=== PATIENT | female | born 1950 | race Caucasian/White ===

== ENCOUNTER 2020-10-26 11:11 | Inpatient (IN) ==
[2020-10-26] MEDS ORDERED: 0.9 % Sodium Chloride 500 ML IVC ONE (11:51)
[2020-10-26 11:54] LABS: Basophils % 0.3 %; Hematocrit 23.7 % (35.3-44.9); Hemoglobin 7.8 g/dL (11.5-15.4); Immature Granulocytes % 6.7 % (0-4); Lymphocytes # 0.3 K/mcL (0.6-4.6); Lymphocytes % 8.6 %; Mean Corpuscular HGB Conc 32.9 g/dL (31.6-35.5); Mean Corpuscular Hemoglobin 31.1 pg (28.0-33.3); Mean Corpuscular Volume 94.4 fL (83.0-100.0); Mean Platelet Volume 8.7 fL (9.4-12.4); Monocytes # 0.2 K/mcL (0.0-1.3); Monocytes % 4.6 %; Nucleated Red Blood Cells 1.3 /100 WBC (0); Platelet Count 125 K/mcL (140-400); Red Blood Count 2.51 M/mcL (3.82-4.97); Red Cell Distribution Width 19.2 % (11.5-14.5); Segmented Neutrophils % 79.8 %; White Blood Count 3.7 K/mcL (4.3-11.1)
[2020-10-26 12:04] LABS: Bilirubin,Urine Negative (Negative); Blood,Urine Negative (Negative); Clarity,Urine Clear (Clear); Color,Urine Yellow (Yellow); Glucose,Urine (UA) Normal (Normal); Ketones,Urine Trace mg/dL (Negative); Leukocyte Esterase,Urine Trace (Negative); Nitrite,Urine Negative (Negative); Protein,Urine 30 mg/dL (Neg-Trace); Urobilinogen,Urine Normal (Normal)
[2020-10-26 12:06] LABS: Squamous Epithelial Cell,Urine Few per hpf (None-Few); WBC,Urine 0-3 per hpf (0-3)
[2020-10-26 12:08] LABS: BUN/Creatinine Ratio 48 (6-26); Blood Urea Nitrogen 25 mg/dL (8-23); Calcium 8.2 mg/dL (8.6-10.3); Carbon Dioxide 23 mEq/L (23-29); Chloride 95 mEq/L (98-107); Glucose 202 mg/dL (70-105); Osmolality,Calculated 276 (280-300); Potassium 4.4 mEq/L (3.5-5.1); Sodium 128 mEq/L (136-145); eGFR For African Americans > 60 (> 60); eGFR For Non-African Americans > 60 (> 60)
[2020-10-26 12:09] LABS: Troponin I < 0.03 ng/mL (< 0.04)
[2020-10-26] MEDS ORDERED: Naloxone 0.4 MG/ML INJ IVP PRN (13:05)
[2020-10-26] MEDS ORDERED: Dextrose Gel 15 GM/37.5 ML TUBE PO PRN ×2 (14:48)
[2020-10-26] MEDS ORDERED: *HR* Dextrose 50 % in Water (Vial) 50 ML VIAL IVP PRN (14:48)
[2020-10-26] MEDS ORDERED: D5% in Water 1,000 ML IVC PRN (14:48)
[2020-10-26] MEDS ORDERED: Diphenoxylate/Atropine 1 TAB TABLET PO PRN (16:12)
[2020-10-26] MEDS: Insulin LISPRO 300 UNITS/3 ML VIAL SUBQ SCH ×2 (16:58→20:14)
[2020-10-26 17:00] LABS: Hemoglobin 7.4 g/dL (11.5-15.4)
[2020-10-26] MEDS: Ringers Solution, Lactated 1,000 ML IVC SCH (17:10)
[2020-10-26] MEDS: Insulin DETEMIR 100 UNIT/ML X5UNITS SUBQ SCH (20:15)
[2020-10-26] MEDS: TEMOZOLOMIDE 140 MG PO SCH (20:15)
[2020-10-26] MEDS: Nystatin POWDER 30 GM BOTTLE TP SCH (20:16)
[2020-10-26] MEDS: Ondansetron ODT 4 MG TAB.RAPDIS SL PRN (20:18)
[2020-10-27 05:15] LABS: Hematocrit 22.6 % (35.3-44.9); Hemoglobin 7.8 g/dL (11.5-15.4); Mean Corpuscular HGB Conc 34.5 g/dL (31.6-35.5); Mean Corpuscular Hemoglobin 31.5 pg (28.0-33.3); Mean Corpuscular Volume 91.1 fL (83.0-100.0); Mean Platelet Volume 8.4 fL (9.4-12.4); Platelet Count 124 K/mcL (140-400); Red Blood Count 2.48 M/mcL (3.82-4.97); Red Cell Distribution Width 18.9 % (11.5-14.5); White Blood Count 4.2 K/mcL (4.3-11.1)
[2020-10-27 05:36] LABS: BUN/Creatinine Ratio 49 (6-26); Blood Urea Nitrogen 18 mg/dL (8-23); Calcium 8.3 mg/dL (8.6-10.3); Carbon Dioxide 25 mEq/L (23-29); Chloride 95 mEq/L (98-107); Glucose 86 mg/dL (70-105); Osmolality,Calculated 267 (280-300); Potassium 3.8 mEq/L (3.5-5.1); Sodium 128 mEq/L (136-145); eGFR For African Americans > 60 (> 60); eGFR For Non-African Americans > 60 (> 60)
[2020-10-27 05:42] LABS: Anisocytosis 1+ (Not Present); Monocytes # 0.1 K/mcL (0.0-1.3); Neutrophils # 3.1 K/mcL (1.6-8.9); Polychromasia 1+ (Not Present); Reactive Lymphocytes Present (Not Present)
[2020-10-27 05:43] LABS: Platelet Estimate Normal (Normal)
[2020-10-27] MEDS: Ringers Solution, Lactated 1,000 ML IVC SCH (05:53)
[2020-10-27] MEDS: Multivit/Ca/Min/Fe/FA 1 TAB TABLET PO SCH (08:14)
[2020-10-27] MEDS: Cholecalciferol (D-3) 1,000 UNIT (25MCG) TABLET PO SCH (08:14)
[2020-10-27] MEDS: dexAMETHasone 4 MG TABLET PO SCH (08:15)
[2020-10-27] MEDS: amLODIPine 5 MG TABLET PO SCH (08:15)
[2020-10-27] MEDS: Nystatin POWDER 30 GM BOTTLE TP SCH ×2 (08:18→20:45)
[2020-10-27] MEDS: Sulfamethoxazole/Trimeth DS 1 EACH TABLET PO SCH (08:20)
[2020-10-27] MEDS: Insulin LISPRO 300 UNITS/3 ML VIAL SUBQ SCH ×4 (08:21→20:45)
[2020-10-27] MEDS ORDERED: (Ubidecarenone [Coq10] 50 MG Tab.Chew) PO SCH (09:00)
[2020-10-27] MEDS ORDERED: Cholecalciferol (D-3) 1,000 UNIT (25MCG) TABLET PO SCH (09:00)
[2020-10-27] MEDS ORDERED: Gadolinium Contrast Agent (WT Based) IV PRN (16:28)
[2020-10-27] MEDS: TEMOZOLOMIDE 140 MG PO SCH (20:42)
[2020-10-27] MEDS: Insulin DETEMIR 100 UNIT/ML X5UNITS SUBQ SCH (20:44)
[2020-10-28] MEDS: Acetaminophen 325 MG TABLET PO PRN (05:37)
[2020-10-28 06:35] LABS: BUN/Creatinine Ratio 39 (6-26); Blood Urea Nitrogen 15 mg/dL (8-23); Calcium 8.3 mg/dL (8.6-10.3); Carbon Dioxide 26 mEq/L (23-29); Chloride 97 mEq/L (98-107); Glucose 71 mg/dL (70-105); Osmolality,Calculated 269 (280-300); Potassium 3.9 mEq/L (3.5-5.1); Sodium 130 mEq/L (136-145); eGFR For African Americans > 60 (> 60); eGFR For Non-African Americans > 60 (> 60)
[2020-10-28] MEDS: Insulin LISPRO 300 UNITS/3 ML VIAL SUBQ SCH ×4 (07:14→21:25)
[2020-10-28] MEDS: Cholecalciferol (D-3) 1,000 UNIT (25MCG) TABLET PO SCH (08:27)
[2020-10-28] MEDS: dexAMETHasone 4 MG TABLET PO SCH ×4 (08:27→21:25)
[2020-10-28] MEDS: Multivit/Ca/Min/Fe/FA 1 TAB TABLET PO SCH (08:27)
[2020-10-28] MEDS: Nystatin POWDER 30 GM BOTTLE TP SCH ×2 (08:29→21:25)
[2020-10-28] MEDS: amLODIPine 5 MG TABLET PO SCH (10:16)
[2020-10-28] MEDS: Insulin DETEMIR 100 UNIT/ML X5UNITS SUBQ SCH (21:24)
[2020-10-29 06:36] LABS: Hematocrit 20.9 % (35.3-44.9); Mean Corpuscular HGB Conc 33.5 g/dL (31.6-35.5); Mean Corpuscular Hemoglobin 31.4 pg (28.0-33.3); Mean Corpuscular Volume 93.7 fL (83.0-100.0); Mean Platelet Volume 8.4 fL (9.4-12.4); Platelet Count 139 K/mcL (140-400); Red Blood Count 2.23 M/mcL (3.82-4.97); Red Cell Distribution Width 19.8 % (11.5-14.5); White Blood Count 4.4 K/mcL (4.3-11.1)
[2020-10-29 06:58] LABS: BUN/Creatinine Ratio 53 (6-26); Blood Urea Nitrogen 19 mg/dL (8-23); Calcium 8.4 mg/dL (8.6-10.3); Carbon Dioxide 27 mEq/L (23-29); Chloride 97 mEq/L (98-107); Glucose 199 mg/dL (70-105); Osmolality,Calculated 276 (280-300); Phosphorous 3.4 mg/dL (2.7-4.5); Potassium 4.1 mEq/L (3.5-5.1); Sodium 129 mEq/L (136-145); eGFR For African Americans > 60 (> 60); eGFR For Non-African Americans > 60 (> 60)
[2020-10-29] MEDS: Nystatin POWDER 30 GM BOTTLE TP SCH ×2 (08:39→20:37)
[2020-10-29] MEDS: Cholecalciferol (D-3) 1,000 UNIT (25MCG) TABLET PO SCH (08:39)
[2020-10-29] MEDS: Multivit/Ca/Min/Fe/FA 1 TAB TABLET PO SCH (08:39)
[2020-10-29] MEDS: dexAMETHasone 4 MG TABLET PO SCH ×4 (08:39→22:33)
[2020-10-29] MEDS: amLODIPine 5 MG TABLET PO SCH (08:39)
[2020-10-29] MEDS: Insulin LISPRO 300 UNITS/3 ML VIAL SUBQ SCH ×4 (08:42→20:37)
[2020-10-29] MEDS: Sulfamethoxazole/Trimeth DS 1 EACH TABLET PO SCH (08:42)
[2020-10-29] MEDS: Magic Mouthwash 10 ML UD Cup PO SCH ×2 (12:31→18:20)
[2020-10-29] MEDS ORDERED: Insulin DETEMIR 100 UNIT/ML X5UNITS SUBQ SCH (21:00)
[2020-10-30 06:15] LABS: Hematocrit 21.2 % (35.3-44.9); Hemoglobin 7.3 g/dL (11.5-15.4); Mean Corpuscular HGB Conc 34.4 g/dL (31.6-35.5); Mean Corpuscular Hemoglobin 32.2 pg (28.0-33.3); Mean Corpuscular Volume 93.4 fL (83.0-100.0); Mean Platelet Volume 9.3 fL (9.4-12.4); Nucleated Red Blood Cells 1.8 /100 WBC (0); Platelet Count 153 K/mcL (140-400); Red Blood Count 2.27 M/mcL (3.82-4.97); Red Cell Distribution Width 19.9 % (11.5-14.5)
[2020-10-30 06:52] LABS: Anisocytosis 1+ (Not Present); Lymphocytes # 0.7 K/mcL (0.6-4.6); Neutrophils # 3.8 K/mcL (1.6-8.9); Polychromasia 2+ (Not Present)
[2020-10-30 06:53] LABS: Platelet Estimate Normal (Normal)
[2020-10-30 07:35] LABS: Alanine Aminotransferase 27 Units/L (7-52); Albumin 3.2 g/dL (3.5-5.7); Albumin/Globulin Ratio 1.6 (1.1-2.2); Alkaline Phosphatase 53 Units/L (34-104); Aspartate Amino Transferase 15 Units/L (13-39); BUN/Creatinine Ratio 50 (6-26); Bilirubin,Direct 0.1 mg/dL (0.0-0.2); Bilirubin,Indirect 0.5 mg/dL (0.0-1.0); Bilirubin,Total 0.6 mg/dL (0.3-1.0); Blood Urea Nitrogen 21 mg/dL (8-23); Calcium 8.5 mg/dL (8.6-10.3); Carbon Dioxide 25 mEq/L (23-29); Chloride 96 mEq/L (98-107); Glucose 253 mg/dL (70-105); Magnesium 1.9 mg/dL (1.6-2.6); Osmolality,Calculated 278 (280-300); Potassium 4.5 mEq/L (3.5-5.1); Sodium 128 mEq/L (136-145); Total Protein 5.2 g/dL (6.4-8.9); eGFR For African Americans > 60 (> 60); eGFR For Non-African Americans > 60 (> 60)
[2020-10-30] MEDS: Insulin LISPRO 300 UNITS/3 ML VIAL SUBQ SCH ×4 (09:10→22:55)
[2020-10-30] MEDS: Magic Mouthwash 10 ML UD Cup PO SCH ×3 (09:10→16:50)
[2020-10-30] MEDS: amLODIPine 5 MG TABLET PO SCH (09:10)
[2020-10-30] MEDS: Multivit/Ca/Min/Fe/FA 1 TAB TABLET PO SCH (09:11)
[2020-10-30] MEDS: Nystatin POWDER 30 GM BOTTLE TP SCH ×2 (09:11→22:59)
[2020-10-30] MEDS: dexAMETHasone 4 MG TABLET PO SCH ×4 (09:11→22:58)
[2020-10-30] MEDS: Cholecalciferol (D-3) 1,000 UNIT (25MCG) TABLET PO SCH (11:40)
[2020-10-30] MEDS ORDERED: Insulin DETEMIR 100 UNIT/ML X5UNITS SUBQ ONE (11:41)
[2020-10-30] MEDS: Insulin DETEMIR 100 UNIT/ML X5UNITS SUBQ SCH (22:58)
[2020-10-31 05:40] LABS: Hematocrit 22.7 % (35.3-44.9); Hemoglobin 7.8 g/dL (11.5-15.4); Mean Corpuscular HGB Conc 34.4 g/dL (31.6-35.5); Mean Platelet Volume 8.7 fL (9.4-12.4); Nucleated Red Blood Cells 2.4 /100 WBC (0); Platelet Count 177 K/mcL (140-400); Red Blood Count 2.44 M/mcL (3.82-4.97); Red Cell Distribution Width 19.9 % (11.5-14.5); White Blood Count 6.8 K/mcL (4.3-11.1)
[2020-10-31 06:11] LABS: BUN/Creatinine Ratio 78 (6-26); Blood Urea Nitrogen 28 mg/dL (8-23); Calcium 8.8 mg/dL (8.6-10.3); Carbon Dioxide 25 mEq/L (23-29); Chloride 96 mEq/L (98-107); Glucose 184 mg/dL (70-105); Magnesium 1.9 mg/dL (1.6-2.6); Osmolality,Calculated 278 (280-300); Potassium 4.1 mEq/L (3.5-5.1); Sodium 129 mEq/L (136-145); eGFR For African Americans > 60 (> 60); eGFR For Non-African Americans > 60 (> 60)
[2020-10-31 06:41] LABS: Lymphocytes # 1.9 K/mcL (0.6-4.6); Monocytes # 0.1 K/mcL (0.0-1.3); Neutrophils # 4.8 K/mcL (1.6-8.9); Polychromasia 2+ (Not Present)
[2020-10-31 06:42] LABS: Anisocytosis 1+ (Not Present); Platelet Estimate Normal (Normal); Reactive Lymphocytes Present (Not Present)
[2020-10-31] MEDS: Insulin DETEMIR 100 UNIT/ML X5UNITS SUBQ SCH ×2 (09:01→20:28)
[2020-10-31] MEDS: Multivit/Ca/Min/Fe/FA 1 TAB TABLET PO SCH (09:02)
[2020-10-31] MEDS: amLODIPine 5 MG TABLET PO SCH (09:02)
[2020-10-31] MEDS: Magic Mouthwash 10 ML UD Cup PO SCH ×3 (09:02→17:30)
[2020-10-31] MEDS: Nystatin POWDER 30 GM BOTTLE TP SCH ×2 (09:02→22:04)
[2020-10-31] MEDS: Insulin LISPRO 300 UNITS/3 ML VIAL SUBQ SCH ×4 (09:02→20:29)
[2020-10-31] MEDS: dexAMETHasone 4 MG TABLET PO SCH ×4 (09:02→20:26)
[2020-10-31] MEDS: Cholecalciferol (D-3) 1,000 UNIT (25MCG) TABLET PO SCH (09:07)
[2020-10-31] MEDS: Sulfamethoxazole/Trimeth DS 1 EACH TABLET PO SCH (09:07)
[2020-10-31] MEDS ORDERED: Insulin DETEMIR 100 UNIT/ML X5UNITS SUBQ ONE (12:11)
[2020-11-01] MEDS: Insulin LISPRO 300 UNITS/3 ML VIAL SUBQ SCH ×4 (07:53→21:18)
[2020-11-01] MEDS: Insulin DETEMIR 100 UNIT/ML X5UNITS SUBQ SCH ×2 (08:19→21:17)
[2020-11-01] MEDS: Magic Mouthwash 10 ML UD Cup PO SCH ×3 (08:20→17:17)
[2020-11-01] MEDS: Multivit/Ca/Min/Fe/FA 1 TAB TABLET PO SCH (08:20)
[2020-11-01] MEDS: amLODIPine 5 MG TABLET PO SCH (08:20)
[2020-11-01] MEDS: Cholecalciferol (D-3) 1,000 UNIT (25MCG) TABLET PO SCH (08:20)
[2020-11-01] MEDS: dexAMETHasone 4 MG TABLET PO SCH ×4 (08:20→21:16)
[2020-11-01] MEDS: Nystatin POWDER 30 GM BOTTLE TP SCH ×2 (08:21→21:59)
[2020-11-01 08:50] LABS: Hematocrit 25.2 % (35.3-44.9); Hemoglobin 8.3 g/dL (11.5-15.4); Mean Corpuscular HGB Conc 32.9 g/dL (31.6-35.5); Mean Corpuscular Hemoglobin 31.3 pg (28.0-33.3); Mean Corpuscular Volume 95.1 fL (83.0-100.0); Mean Platelet Volume 8.4 fL (9.4-12.4); Nucleated Red Blood Cells 2.6 /100 WBC (0); Platelet Count 181 K/mcL (140-400); Red Blood Count 2.65 M/mcL (3.82-4.97); Red Cell Distribution Width 20.2 % (11.5-14.5); White Blood Count 8.7 K/mcL (4.3-11.1)
[2020-11-01 09:08] LABS: BUN/Creatinine Ratio 51 (6-26); Blood Urea Nitrogen 21 mg/dL (8-23); Calcium 8.8 mg/dL (8.6-10.3); Carbon Dioxide 28 mEq/L (23-29); Chloride 95 mEq/L (98-107); Glucose 79 mg/dL (70-105); Osmolality,Calculated 270 (280-300); Potassium 4.2 mEq/L (3.5-5.1); Sodium 129 mEq/L (136-145); eGFR For African Americans > 60 (> 60); eGFR For Non-African Americans > 60 (> 60)
[2020-11-01 10:05] LABS: Eosinophils # 0.2 K/mcL (0.0-0.6); Lymphocytes # 1.4 K/mcL (0.6-4.6); Monocytes # 0.4 K/mcL (0.0-1.3); Neutrophils # 6.4 K/mcL (1.6-8.9); Platelet Estimate Normal (Normal)
[2020-11-01] MEDS ORDERED: Sennosides/Docusate Sodium TABLET PO PRN (14:39)
[2020-11-02 06:20] LABS: Basophils % 0.1 %; Hemoglobin 8.3 g/dL (11.5-15.4); Immature Granulocytes % 11.2 % (0-4); Lymphocytes # 1.2 K/mcL (0.6-4.6); Lymphocytes % 14.5 %; Mean Corpuscular HGB Conc 34.6 g/dL (31.6-35.5); Mean Corpuscular Hemoglobin 32.5 pg (28.0-33.3); Mean Corpuscular Volume 94.1 fL (83.0-100.0); Mean Platelet Volume 8.5 fL (9.4-12.4); Monocytes # 0.4 K/mcL (0.0-1.3); Platelet Count 168 K/mcL (140-400); Red Blood Count 2.55 M/mcL (3.82-4.97); Segmented Neutrophils % 69.2 %; White Blood Count 8.3 K/mcL (4.3-11.1)
[2020-11-02 06:22] LABS: Neutrophils # 5.7 K/mcL (1.6-8.9)
[2020-11-02 06:34] LABS: BUN/Creatinine Ratio 70 (6-26); Blood Urea Nitrogen 21 mg/dL (8-23); Calcium 8.7 mg/dL (8.6-10.3); Carbon Dioxide 26 mEq/L (23-29); Chloride 97 mEq/L (98-107); Glucose 83 mg/dL (70-105); Osmolality,Calculated 276 (280-300); Potassium 4.1 mEq/L (3.5-5.1); Sodium 132 mEq/L (136-145); eGFR For African Americans > 60 (> 60); eGFR For Non-African Americans > 60 (> 60)
[2020-11-02 06:54] LABS: Anisocytosis 1+ (Not Present); Reactive Lymphocytes Present (Not Present); Toxic Granulation Present (Not Present)
[2020-11-02] MEDS: Multivit/Ca/Min/Fe/FA 1 TAB TABLET PO SCH (08:22)
[2020-11-02] MEDS: Cholecalciferol (D-3) 1,000 UNIT (25MCG) TABLET PO SCH (08:22)
[2020-11-02] MEDS: Magic Mouthwash 10 ML UD Cup PO SCH ×3 (08:22→17:20)
[2020-11-02] MEDS: amLODIPine 5 MG TABLET PO SCH (08:23)
[2020-11-02] MEDS: Insulin DETEMIR 100 UNIT/ML X5UNITS SUBQ SCH ×2 (08:23→21:27)
[2020-11-02] MEDS: Insulin LISPRO 300 UNITS/3 ML VIAL SUBQ SCH ×3 (08:23→17:21)
[2020-11-02] MEDS: dexAMETHasone 4 MG TABLET PO SCH ×4 (08:23→21:21)
[2020-11-02] MEDS: Nystatin POWDER 30 GM BOTTLE TP SCH ×2 (08:27→21:33)
[2020-11-03 04:59] LABS: Hematocrit 26.3 % (35.3-44.9); Hemoglobin 8.6 g/dL (11.5-15.4); Mean Corpuscular HGB Conc 32.7 g/dL (31.6-35.5); Mean Corpuscular Hemoglobin 31.4 pg (28.0-33.3); Mean Platelet Volume 8.4 fL (9.4-12.4); Nucleated Red Blood Cells 0.8 /100 WBC (0); Platelet Count 157 K/mcL (140-400); Red Blood Count 2.74 M/mcL (3.82-4.97); Red Cell Distribution Width 19.8 % (11.5-14.5); White Blood Count 8.6 K/mcL (4.3-11.1)
[2020-11-03 05:18] LABS: BUN/Creatinine Ratio 77 (6-26); Blood Urea Nitrogen 23 mg/dL (8-23); Calcium 8.5 mg/dL (8.6-10.3); Carbon Dioxide 25 mEq/L (23-29); Chloride 96 mEq/L (98-107); Glucose 115 mg/dL (70-105); Osmolality,Calculated 271 (280-300); Potassium 4.2 mEq/L (3.5-5.1); Sodium 128 mEq/L (136-145); eGFR For African Americans > 60 (> 60); eGFR For Non-African Americans > 60 (> 60)
[2020-11-03 05:34] LABS: Neutrophils # 7.2 K/mcL (1.6-8.9)
[2020-11-03 05:35] LABS: Anisocytosis 1+ (Not Present); Platelet Estimate Normal (Normal); Polychromasia 1+ (Not Present); Reactive Lymphocytes Present (Not Present)
[2020-11-03] MEDS: Insulin LISPRO 300 UNITS/3 ML VIAL SUBQ SCH ×4 (07:45→16:25)
[2020-11-03] MEDS: amLODIPine 5 MG TABLET PO SCH (10:09)
[2020-11-03] MEDS: Nystatin POWDER 30 GM BOTTLE TP SCH ×2 (10:09→21:58)
[2020-11-03] MEDS: Cholecalciferol (D-3) 1,000 UNIT (25MCG) TABLET PO SCH (10:09)
[2020-11-03] MEDS: Multivit/Ca/Min/Fe/FA 1 TAB TABLET PO SCH (10:09)
[2020-11-03] MEDS: dexAMETHasone 4 MG TABLET PO SCH ×4 (10:09→21:58)
[2020-11-03] MEDS: Magic Mouthwash 10 ML UD Cup PO SCH ×3 (10:12→16:23)
[2020-11-03] MEDS: Insulin DETEMIR 100 UNIT/ML X5UNITS SUBQ SCH ×2 (10:12→22:00)
[2020-11-03] MEDS: Sulfamethoxazole/Trimeth DS 1 EACH TABLET PO SCH (10:12)
[2020-11-03] MEDS: Sennosides/Docusate Sodium TABLET PO SCH ×2 (10:14→21:58)
[2020-11-03] MEDS: Acetaminophen 325 MG TABLET PO PRN (21:58)
[2020-11-03] MEDS: Ondansetron ODT 4 MG TAB.RAPDIS SL PRN (22:06)
[2020-11-04 06:11] LABS: Hematocrit 25.7 % (35.3-44.9); Hemoglobin 8.8 g/dL (11.5-15.4); Mean Corpuscular HGB Conc 34.2 g/dL (31.6-35.5); Mean Corpuscular Hemoglobin 31.4 pg (28.0-33.3); Mean Corpuscular Volume 91.8 fL (83.0-100.0); Mean Platelet Volume 8.3 fL (9.4-12.4); Nucleated Red Blood Cells 0.8 /100 WBC (0); Platelet Count 149 K/mcL (140-400); White Blood Count 9.1 K/mcL (4.3-11.1)
[2020-11-04 06:33] LABS: BUN/Creatinine Ratio 66 (6-26); Blood Urea Nitrogen 21 mg/dL (8-23); Calcium 8.5 mg/dL (8.6-10.3); Carbon Dioxide 25 mEq/L (23-29); Chloride 92 mEq/L (98-107); Glucose 89 mg/dL (70-105); Magnesium 1.9 mg/dL (1.6-2.6); Osmolality,Calculated 262 (280-300); Potassium 4.5 mEq/L (3.5-5.1); Sodium 125 mEq/L (136-145); eGFR For African Americans > 60 (> 60); eGFR For Non-African Americans > 60 (> 60)
[2020-11-04 06:47] LABS: Anisocytosis 1+ (Not Present); Lymphocytes # 1.5 K/mcL (0.6-4.6); Monocytes # 0.2 K/mcL (0.0-1.3); Neutrophils # 6.9 K/mcL (1.6-8.9); Platelet Estimate Normal (Normal); Polychromasia 1+ (Not Present)
[2020-11-04] MEDS: amLODIPine 5 MG TABLET PO SCH (08:19)
[2020-11-04] MEDS: Multivit/Ca/Min/Fe/FA 1 TAB TABLET PO SCH (08:19)
[2020-11-04] MEDS: Magic Mouthwash 10 ML UD Cup PO SCH ×3 (08:19→16:55)
[2020-11-04] MEDS: dexAMETHasone 4 MG TABLET PO SCH ×4 (08:19→21:07)
[2020-11-04] MEDS: Sennosides/Docusate Sodium TABLET PO SCH ×2 (08:19→21:07)
[2020-11-04] MEDS: Cholecalciferol (D-3) 1,000 UNIT (25MCG) TABLET PO SCH (08:19)
[2020-11-04] MEDS: Insulin LISPRO 300 UNITS/3 ML VIAL SUBQ SCH ×3 (08:22→16:55)
[2020-11-04] MEDS: Nystatin POWDER 30 GM BOTTLE TP SCH ×2 (08:22→21:08)
[2020-11-04] MEDS: Insulin DETEMIR 100 UNIT/ML X5UNITS SUBQ SCH (08:22)
[2020-11-04] MEDS: polyethylene glycoL 3350 17 GM POWD.PACK PO SCH ×2 (10:26→21:07)
[2020-11-05 05:44] LABS: Hemoglobin 8.8 g/dL (11.5-15.4); Mean Corpuscular HGB Conc 33.8 g/dL (31.6-35.5); Mean Corpuscular Volume 91.5 fL (83.0-100.0); Mean Platelet Volume 8.5 fL (9.4-12.4); Platelet Count 151 K/mcL (140-400); Red Blood Count 2.84 M/mcL (3.82-4.97); Red Cell Distribution Width 18.3 % (11.5-14.5); White Blood Count 9.3 K/mcL (4.3-11.1)
[2020-11-05 06:06] LABS: BUN/Creatinine Ratio 95 (6-26); Blood Urea Nitrogen 21 mg/dL (8-23); Calcium 8.4 mg/dL (8.6-10.3); Carbon Dioxide 23 mEq/L (23-29); Chloride 90 mEq/L (98-107); Glucose 170 mg/dL (70-105); Magnesium 1.8 mg/dL (1.6-2.6); Osmolality,Calculated 261 (280-300); Potassium 4.4 mEq/L (3.5-5.1); Sodium 122 mEq/L (136-145); eGFR For African Americans > 60 (> 60); eGFR For Non-African Americans > 60 (> 60)
[2020-11-05 06:20] LABS: Anisocytosis 1+ (Not Present); Lymphocytes # 0.7 K/mcL (0.6-4.6); Neutrophils # 8.4 K/mcL (1.6-8.9); Platelet Estimate Normal (Normal); Polychromasia 1+ (Not Present)
[2020-11-05] MEDS: amLODIPine 5 MG TABLET PO SCH (09:35)
[2020-11-05] MEDS: dexAMETHasone 4 MG TABLET PO SCH ×4 (09:35→22:01)
[2020-11-05] MEDS: Cholecalciferol (D-3) 1,000 UNIT (25MCG) TABLET PO SCH (09:35)
[2020-11-05] MEDS: polyethylene glycoL 3350 17 GM POWD.PACK PO SCH ×2 (09:35→22:01)
[2020-11-05] MEDS: Sennosides/Docusate Sodium TABLET PO SCH ×2 (09:35→22:01)
[2020-11-05] MEDS: Multivit/Ca/Min/Fe/FA 1 TAB TABLET PO SCH (09:35)
[2020-11-05] MEDS: Magic Mouthwash 10 ML UD Cup PO SCH ×3 (09:35→17:22)
[2020-11-05] MEDS: Insulin DETEMIR 100 UNIT/ML X5UNITS SUBQ SCH (09:35)
[2020-11-05] MEDS: Insulin LISPRO 300 UNITS/3 ML VIAL SUBQ SCH ×3 (09:36→17:20)
[2020-11-05] MEDS: Sulfamethoxazole/Trimeth DS 1 EACH TABLET PO SCH (09:40)
[2020-11-05] MEDS: Nystatin POWDER 30 GM BOTTLE TP SCH ×2 (09:41→22:22)
[2020-11-05] MEDS ORDERED: Milk and Molasses Enema 200 ML RC ONE (09:52)
[2020-11-06 05:31] LABS: Basophils % 0.1 %; Hematocrit 26.9 % (35.3-44.9); Hemoglobin 9.2 g/dL (11.5-15.4); Immature Granulocytes % 3.3 % (0-4); Lymphocytes # 0.9 K/mcL (0.6-4.6); Lymphocytes % 9.4 %; Mean Corpuscular HGB Conc 34.2 g/dL (31.6-35.5); Mean Corpuscular Hemoglobin 31.4 pg (28.0-33.3); Mean Corpuscular Volume 91.8 fL (83.0-100.0); Mean Platelet Volume 8.7 fL (9.4-12.4); Monocytes # 0.3 K/mcL (0.0-1.3); Monocytes % 3.5 %; Neutrophils # 7.8 K/mcL (1.6-8.9); Nucleated Red Blood Cells 0.2 /100 WBC (0); Platelet Count 157 K/mcL (140-400); Red Blood Count 2.93 M/mcL (3.82-4.97); Red Cell Distribution Width 18.1 % (11.5-14.5); Segmented Neutrophils % 83.7 %; White Blood Count 9.3 K/mcL (4.3-11.1)
[2020-11-06 05:47] LABS: BUN/Creatinine Ratio 70 (6-26); Blood Urea Nitrogen 21 mg/dL (8-23); Calcium 8.6 mg/dL (8.6-10.3); Carbon Dioxide 25 mEq/L (23-29); Chloride 92 mEq/L (98-107); Glucose 156 mg/dL (70-105); Osmolality,Calculated 264 (280-300); Potassium 4.7 mEq/L (3.5-5.1); Sodium 124 mEq/L (136-145); eGFR For African Americans > 60 (> 60); eGFR For Non-African Americans > 60 (> 60)
[2020-11-06] MEDS: polyethylene glycoL 3350 17 GM POWD.PACK PO SCH (08:33)
[2020-11-06] MEDS: Multivit/Ca/Min/Fe/FA 1 TAB TABLET PO SCH (08:33)
[2020-11-06] MEDS: Sennosides/Docusate Sodium TABLET PO SCH (08:33)
[2020-11-06] MEDS: Magic Mouthwash 10 ML UD Cup PO SCH (08:33)
[2020-11-06] MEDS: Cholecalciferol (D-3) 1,000 UNIT (25MCG) TABLET PO SCH (08:33)
[2020-11-06] MEDS: dexAMETHasone 4 MG TABLET PO SCH (08:33)
[2020-11-06] MEDS: Insulin DETEMIR 100 UNIT/ML X5UNITS SUBQ SCH (08:34)
[2020-11-06] MEDS: amLODIPine 5 MG TABLET PO SCH (08:34)
[2020-11-06 09:22] VITALS: BP 143/70
[2020-11-06] MEDS: Nystatin POWDER 30 GM BOTTLE TP SCH (09:34)
[2020-11-06] MEDS: Insulin LISPRO 300 UNITS/3 ML VIAL SUBQ SCH (09:34)
== END 2020-11-06 11:46 | disposition hospice, home (50) | DRG 54 ==
LOC: EMEROOARM 11:11 → 3ANU 11:11 → SUATTDRO 13:20 → 3ANU 13:41 → SUATTDRO 10-31 20:49
PROVIDERS: ADMIT Internal Medicine; ATTEND Internal Medicine